=== PATIENT | female | born 1950 | race Caucasian/White ===

== ENCOUNTER → 2017-03-04 | Outpatient (CLI) | payer MEDICARE, OTHER ==
[2017-03-04 13:30] LABS: HEMOGLOBIN 13.8 gm/dl (12.3-15.3); RED BLOOD COUNT 4.39 M/UL (4.00-5.10); WHITE BLOOD COUNT 6.4 K/UL (4.5-11.0)
== END ==
LOC: LAB 12:18
PROVIDERS: Nurse Practitioner Family
DX: J30.89 Other allergic rhinitis (principal); L50.1 Idiopathic urticaria
CPT/HCPCS: 36415; 82785; 84439; 84443; 84480; 85025; 86039; 86162; 86376; 86800

== ENCOUNTER → 2021-07-01 | Outpatient (CLI) | payer MEDICARE, OTHER ==
[2021-07-01 10:37] LABS: HEMOGLOBIN 13.2 gm/dl (12.3-15.3); RED BLOOD COUNT 4.25 M/UL (4.00-5.10); WHITE BLOOD COUNT 5.6 K/UL (4.5-11.0)
[2021-07-01 10:59] LABS: BUN/CREATININE RATIO 18 (0-10)
[2021-07-02 08:14] LABS: THYROXINE (T4) 8.7 ug/dL (4.5-12.0); VITAMIN D, 25-HYDROXY 35.2 ng/mL (30.0-100.0)
== END ==
LOC: LAB 10:04
PROVIDERS: Dermatology
DX: K76.9 Liver disease, unspecified (principal); R53.83 Other fatigue; R63.4 Abnormal weight loss; Z79.899 Other long term (current) drug therapy
CPT/HCPCS: 36415; 80053; 82180; 82607; 82746; 83540; 84436; 84443; 84480; 84630; 85027